=== PATIENT | male | born 1970 | race Caucasian/White ===

== ENCOUNTER 2018-07-23 11:29 | Inpatient (IN) | payer OTHER ==
[~2018-07-23] VITALS: Ht 185.4 cm; Wt 101.1 kg
[2018-07-23] VITALS (13 sets, daily range): BP systolic 114–158; BP diastolic 53–85
[~2018-07-23 11:29] MED LIST: ACET-75 PO; AMIT75TA2 PO; CAPS57CR5 TOP; acetaminophen 325mg tablet PO ONE; cefazolin/dext.iso 2gm/100 ML IV ONE; famotidine 20mg tablet PO ONE; gabapentin 300mg capsule PO ONE; metoclopramide 5 mg/ml inj IV ONE; oxyCODONE SR 10mg (sust. release) tab PO ONE; ringers solution, lacted 1,000 ML IV SCH; tranexamic acid inj. 1,000 MG in normal saline 100ml IV soln 90 ML IV ONE; vancomycin inj 1,500 MG in normal saline 300ml IV soln IV ONE
[2018-07-23] MEDS ORDERED: ACET1TAB12 PO (12:56)
[2018-07-23 13:09] LABS: ALKALINE PHOSPHATASE 55 IU/L (46-116); BLOOD UREA NITROGEN 19 MG/DL (7-18); BUN/CREATININE RATIO 18.3 (5.4-32.0); CALCIUM 9.2 MG/DL (8.5-10.1); CHLORIDE 105 MMOL/L (99-107); CREATININE 1.04 MG/DL (0.60-1.10); PRE OP ANION GAP 7 (8-16); PRE OP AST 44 U/L (10-37); PRE OP BILIRUB, TOTAL 0.6 MG/DL (0.0-1.0); PRE OP GLUCOSE 92 MG/DL (70-104); PRE OP POTASSIUM 4.6 MMOL/L (3.4-5.1); PRE OP SODIUM 141 MMOL/L (135-145); TOTAL CARBON DIOXIDE 29.5 MMOL/L (24-32); TOTAL PROTEIN 8.1 G/DL (6.4-8.2); eGFR 76 ML/MIN
[2018-07-23 13:10] LABS: PRE OP PROTIME 10.5 SECONDS (9.0-12.0)
[2018-07-23 13:14] LABS: BASOPHILS # (AUTO) 0.1 X10'3 (0-0.2); BASOPHILS % (AUTO) 1.2 % (0-1); EOSINOPHILS # (AUTO) 0.2 X10'3 (0-0.9); EOSINOPHILS % (AUTO) 2.1 % (0-6); LYMPHOCYTES # (AUTO) 3.6 X10'3 (1.1-4.8); LYMPHOCYTES % (AUTO) 36.3 % (21-51); MEAN CORPUSCULAR HEMOGLOBIN 32.2 PG (27.0-31.0); MEAN CORPUSCULAR HGB CONC 33.8 % (33.0-36.5); MEAN CORPUSCULAR VOLUME 95.4 FL (78-98); MEAN PLATELET VOLUME 10.4 FL (7.4-10.4); MONOCYTES # (AUTO) 0.7 X10'3 (0-0.9); MONOCYTES % (AUTO) 7.2 % (2-12); NEUTROPHILS # (AUTO) 5.4 X10'3 (1.8-7.7); NEUTROPHILS % (AUTO) 53.2 % (42-75); PRE OP HEMATOCRIT 42.4 % (42.0-52.0); PRE OP HEMOGLOBIN 14.3 g/dL (14.0-17.9); PRE OP PLATELET COUNT 198 X10'3 (140-440); RED BLOOD COUNT 4.45 X10'6 (4.70-6.10); RED CELL DISTRIBUTION WIDTH 13.3 % (11.5-14.5)
[2018-07-23 13:16] LABS: PRE OP ALT 133 U/L (30-65)
[2018-07-23] MEDS ORDERED: ceFAZolin 1000mg inj ONE (14:10)
[2018-07-23] MEDS ORDERED: vancomycin 1,000mg inj ONE (14:10)
[2018-07-23 14:38] LABS: PLATELET ESTIMATE NORMAL; TOTAL CELLS COUNTED 100
[2018-07-23 14:39] LABS: LARGE PLATELETS FEW
[2018-07-23] MEDS ORDERED: ROPIVAcaine 0.5% (5mg/ml) 30ml vial ONE (14:52)
[2018-07-23] MEDS ORDERED: fentaNYL/PF 50MCG/1 ML 2ML syringe ONE ×2 (15:39→17:23)
[2018-07-23] MEDS ORDERED: LIDOcaine 2% (20mg/ml) 5ml vial ONE (15:40)
[2018-07-23] MEDS ORDERED: propofol inj 20 ML IV ONE (15:40)
[2018-07-23] MEDS ORDERED: midazolam 2 mg/2 ml injection ONE (15:40)
[2018-07-23] MEDS ORDERED: ondansetron/PF 4mg/2ml inj ONE (15:42)
[2018-07-23] MEDS ORDERED: dexamethasone sod phosphate 10mg/ml inj ONE (15:43)
[2018-07-23] MEDS ORDERED: sevoflurane 250ml liquid IH ONE (15:43)
[2018-07-23] MEDS ORDERED: tranexamic acid inj. 1,000 MG in normal saline 100ml IV soln 90 ML IV ONE (15:45)
[2018-07-23] MEDS ORDERED: ringers solution, lacted 1,000 ML IV SCH (15:47)
[2018-07-23] MEDS ORDERED: labetalol 20mg/4ml (5mg/ml) syringe IV PRN (15:50)
[2018-07-23] MEDS ORDERED: morphine 4 MG/ML inj SYRINge IV PRN ×2 (15:50)
[2018-07-23] MEDS ORDERED: ondansetron/PF 4mg/2ml inj IV PRN ×2 (15:50→18:00)
[2018-07-23] MEDS ORDERED: hydrALAZINE 20mg/ml inj. IV PRN (15:50)
[2018-07-23] MEDS ORDERED: fentaNYL/PF 50MCG/1 ML 2ML syringe IV PRN (15:50)
[2018-07-23] MEDS ORDERED: ePHEDrine 50MG/ML INJ. ONE (16:47)
[2018-07-23] MEDS ORDERED: calcium chloride 100 MG/1 ML inj IV ONE (16:50)
[2018-07-23] MEDS ORDERED: morphine 10mg/ml inj. ONE (17:40)
[2018-07-23] MEDS ORDERED: HYDROmorphone 1 mg/ml syringe IV PRN (18:00)
[2018-07-23] MEDS ORDERED: oxyCODONE IR 5mg (immed. release) tablet PO PRN ×2 (18:00)
[2018-07-23] MEDS ORDERED: diphenhydrAMINE 25mg capsule PO PRN ×2 (18:00)
[2018-07-23] MEDS ORDERED: magnesium hydroxide 30ml (MOM) UD suspension PO PRN (18:00)
[2018-07-23] MEDS ORDERED: acetaminophen 325mg tablet PO PRN (18:00)
[2018-07-23] MEDS ORDERED: bisacodyl 10mg suppository rectal RC PRN (18:00)
[2018-07-23] MEDS ORDERED: acetaminophen w/codeine (30MG) #3 tablet PO PRN (18:50)
[2018-07-23] MEDS: fentaNYL/PF 50MCG/1 ML 2ML syringe IV PRN ×2 (19:04→19:14)
[2018-07-23] MEDS ORDERED: vancomycin/NS 1 GM ADD-VANTAGE 250 ML IV SCH (20:00)
[2018-07-23] MEDS: capsaicin 0.025% 60gm cream TP SCH (21:00)
[2018-07-23] MEDS ORDERED: tranexamic acid inj. 1,000 MG in normal saline 100ml IV soln 100 ML IV ONE (21:00)
[2018-07-23] MEDS ORDERED: sennosides 8.6mg tablet PO SCH (21:00)
[2018-07-23] MEDS: gabapentin 300mg capsule PO SCH (21:09)
[2018-07-23] MEDS: acetaminophen 325mg tablet PO SCH (21:10)
[2018-07-23] MEDS: potassium cl 20mEq in 1/2 NS 1,000 ML IV SCH (23:03)
[2018-07-23] MEDS: HYDROmorphone 1 mg/ml syringe IV PRN (23:34)
[2018-07-24] MEDS: ceFAZolin 1GM/D5W- ADD-VANTAGE 50 ML IV SCH ×2 (00:01→09:08)
[2018-07-24 01:45] VITALS: BP 118/62
[2018-07-24] MEDS: potassium cl 20mEq in 1/2 NS 1,000 ML IV SCH (01:58)
[2018-07-24 02:00] VITALS: BP 98/58
[2018-07-24] MEDS: acetaminophen 325mg tablet PO SCH ×2 (02:22→09:10)
[2018-07-24] MEDS: HYDROmorphone 1 mg/ml syringe IV PRN (04:21)
[2018-07-24 05:46] VITALS: BP 118/62
[2018-07-24 06:00] VITALS: BP 99/66
[2018-07-24 06:15] LABS: ANION GAP 6 (8-16); CHLORIDE 105 MMOL/L (99-107); POTASSIUM 4.6 MMOL/L (3.5-5.1); SODIUM 138 MMOL/L (135-145); TOTAL CARBON DIOXIDE 26.6 MMOL/L (24-32)
[2018-07-24 06:42] LABS: BASOPHILS % (AUTO) 0 % (0-1); EOSINOPHILS % (AUTO) 0 % (0-6); HEMATOCRIT 33.7 % (42.0-52.0); HEMOGLOBIN 11.8 g/dl (14.0-17.9); LYMPHOCYTES # (AUTO) 1.9 X10'3 (1.1-4.8); LYMPHOCYTES % (AUTO) 14.4 % (21-51); MEAN CORPUSCULAR HEMOGLOBIN 33.5 PG (27.0-31.0); MEAN CORPUSCULAR HGB CONC 35.1 % (33.0-36.5); MEAN CORPUSCULAR VOLUME 95.5 FL (78-98); MEAN PLATELET VOLUME 10.1 FL (7.4-10.4); MONOCYTES # (AUTO) 0.8 X10'3 (0-0.9); MONOCYTES % (AUTO) 5.7 % (2-12); NEUTROPHILS # (AUTO) 10.8 X10'3 (1.8-7.7); NEUTROPHILS % (AUTO) 79.9 % (42-75); PLATELET COUNT 163 X10'3 (140-440); RED BLOOD COUNT 3.53 X10'6 (4.70-6.10); WHITE BLOOD COUNT 13.5 X10'3 (4.5-11.0)
[2018-07-24] MEDS ORDERED: aspirin 325mg tablet PO SCH (08:30)
[2018-07-24] MEDS: capsaicin 0.025% 60gm cream TP SCH (09:08)
[2018-07-24] MEDS: gabapentin 300mg capsule PO SCH (09:09)
[2018-07-24 10:00] VITALS: BP_SYST 111; BP_SYST 119; BP_DIAS 61; BP_DIAS 70
[2018-07-24] MEDS ORDERED: celeCOXIB 100mg capsule PO SCH (20:00)
[2018-07-25] MEDS ORDERED: acetaminophen 325mg tablet PO PRN (18:00)
== END 2018-07-24 10:15 | DRG 483 ==
LOC: PAS IN 11:29 → EEVIPCON 12:00 → EDSTATUS 15:00 → ORTHO 4S 19:33
PROVIDERS: ADMIT Orthopaedic Surgery; ATTEND Orthopaedic Surgery
PROC: 3E0T3BZ Introduction of Anesthetic Agent into Peripheral Nerves and Plexi, Percutaneous Approach (ICD-10-PCS; 2018-07-23)
PROC: 0RRK0JZ Replacement of Left Shoulder Joint with Synthetic Substitute, Open Approach (ICD-10-PCS; principal; 2018-07-23 15:48)
DX: M19.012 Primary osteoarthritis, left shoulder (principal); D62 Acute posthemorrhagic anemia; B19.20 Unspecified viral hepatitis C without hepatic coma; Z88.5 Allergy status to narcotic agent; Z79.899 Other long term (current) drug therapy
CPT/HCPCS: 36415; 73020; 80051; 80053; 85025; 85610; 85730; 87070; 93005; 97110; 97116; 97162; A4565; A7000; C1713; C1776; J0690; J1100; J1170; J2001; J2250; J2270; J2405; J2704; J2765; J2795; J3010; J3370; J3490; J7030; J7120